=== PATIENT | female | born 1960 | race Caucasian/White ===

== ENCOUNTER 2018-09-01 13:14 | Emergency (ER) | payer OTHER ==
[2018-09-01] MEDS ORDERED: ASPIRIN 81 MG CHEWABLE TAB PO ONE (13:47)
--- NOTE | 2018-09-01 13:53 | EDPHY ---
H & P Stated Complaint: Chest tightness Time Seen by Provider: 09/01/18 13:44 HPI/ROS: CHIEF COMPLAINT: Chest tightness for 1 week HISTORY OF PRESENT ILLNESS: Patient is a 58-year-old female who has been complaining about chest tightness for about 1 week. She states that her symptoms worsened slightly about 24 hr ago. Today [facility]. They obtained an EKG and recommended she come to the ER. She initially declined but later decided to come. She denies significant past medical history other than hypothyroidism. She does travel frequently and recently however she thinks her symptoms began before she was traveling. No fever. No cough. No history of cardiac disease. No family history of cardiac disease. Her symptoms are slightly worsened by deep inspirations. Severity: Moderate Modifying factors: Worsening REVIEW OF SYSTEMS: Constitutional: denies: chills, fever, recent illness, recent injury EENTM: denies: blurred vision, double vision, nose congestion Respiratory: See HPI denies: cough, shortness of breath Cardiac: See HPI denies: irregular heart rate, lightheadedness, palpitations Gastrointestinal/Abdominal: denies: abdominal pain, diarrhea, nausea, vomiting, blood streaked stools Genitourinary: denies: dysuria, frequency, hematuria, pain Musculoskeletal: denies: joint pain, muscle pain Skin: denies: lesions, rash, jaundice, bruising Neurological: denies: headache, numbness, paresthesia, tingling, dizziness, weakness Hematologic/Lymphatic: denies: blood clots, easy bleeding, easy bruising Immunologic/allergic: denies: HIV/AIDS, transplant 10 systems reviewed and negative except as noted EXAM: GENERAL: Well-appearing, well-nourished and in no acute distress. HEAD: Atraumatic, normocephalic. EYES: Pupils equal round and reactive to light, extraocular movements intact, sclera anicteric, conjunctiva are normal. ENT: TMs normal, nares patent, oropharynx clear without exudates. Moist mucous membranes. NECK: Normal range of motion, supple without lymphadenopathy or JVD. LUNGS: Breath sounds clear to auscultation bilaterally and equal. No wheezes rales or rhonchi. HEART: Regular rate and rhythm without murmurs, rubs or gallops. ABDOMEN: Soft, nontender, normoactive bowel sounds. No guarding, no rebound. No masses appreciated. BACK: No CVA tenderness, no spinal tenderness, step-offs or deformities EXTREMITIES: Normal range of motion, no pitting or edema. No clubbing or cyanosis. NEUROLOGICAL: Cranial nerves II through XII grossly intact. Normal speech, normal gait. 5/5 strength, normal movement in all extremities, normal sensation , normal reflexes PSYCH: Normal mood, normal affect. SKIN: Warm, dry, normal turgor, no visible rashes or lesions. Source: Patient Exam Limitations: No limitations - Personal History Current Tetanus/Diphtheria Vaccine: Yes - Medical/Surgical History Hx Asthma: No Hx Chronic Respiratory Disease: No Hx Diabetes: No Hx Cardiac Disease: No Hx Renal Disease: No Hx Cirrhosis: No Hx Alcoholism: No Other PMH: hypothyroidism - Social History Smoking Status: Never smoked Alcohol Use: Sober Drug Use: None Constitutional: Initial Vital Signs Temperature (C) 36.7 C 09/01/18 13:32 Heart Rate 75 09/01/18 13:32 Respiratory Rate 18 09/01/18 13:32 Blood Pressure 135/82 H 09/01/18 13:32 O2 Sat (%) 94 09/01/18 13:32 O2 Delivery Mode Room Air Allergies/Adverse Reactions: codeine Allergy (Verified 09/01/18 13:35) Home Medications: Medication Instructions Recorded Levothyroxine 09/01/18 Medical Decision Making - Diagnostics EKG Interpretation: An EKG obtained and was read and documented in trace view. Please see trace view for full reading and report. Sinus rhythm, no acute ischemic changes sinus rhythm, no acute ischemic changes Imaging: Discussed imaging studies w/ injection wax molder Radiologist ED Course/Re-evaluation: 3:00 p.m. We discussed the test results which are very reassuring. We discussed possible causes for her chest tightness including a recent viral infection she had 3 weeks ago. She also wonders if she is starting to come down with a cold because her states that her voice has changed slightly. She does not feel it is. We engaged in shared decision making. I offered admission or repeat testing. She declines these and was eager to go home. I agree that this is safe because of the duration of her symptoms. She will follow up with her primary and I will also refer her to Cardiology. Differential Diagnosis: Partial list of the Differential diagnosis considered include but were not limited to; acute coronary disease, pleurisy, pericarditis, PE and although unlikely based on the history and physical exam, I also considered pneumonia, pneumothorax, dissection. I discussed these differential diagnoses and the plan with the patient as well as the usual and expected course. The patient understands that the diagnosis is provisional and that in medicine we are not always correct and that further workup is often warranted. Usual and customary warnings were given. All of the patient's questions were answered. The patient was instructed to return to the emergency department should the symptoms at all worsen or return, otherwise to followup with the physician as we discussed. - Data Points Laboratory Results: Laboratory Results 09/01/18 13:55 09/01/18 13:55 Medications Given: Discontinued Medications Aspirin (Aspirin) 324 mg PO EDNOW ONE Stop: 09/01/18 13:48 Last Admin: 09/01/18 13:49 Dose: 324 mg Point of Care Test Results: Chemistry 09/01/18 13:52 POC Troponin I 0.00 ng/mL ng/mL (0.00-0.08) Departure - Departure Disposition: Home, Routine, Self-Care Clinical Impression: Chest pain Qualifiers: Chest pain type: unspecified Qualified Code(s): R07.9 - Chest pain, unspecified Condition: Fair Instructions: Chest Pain (ED) Referrals: María Scales MD [Primary Care Provider] - 2-3 days, call for appt.
--- NOTE | 2018-09-01 13:55 | CPEKG ---
Test Reason : OPEN Blood Pressure : / mmHG Vent. Rate : 069 BPM Atrial Rate : 068 BPM P-R Int : 125 ms QRS Dur : 089 ms QT Int : 406 ms P-R-T Axes : 055 003 034 degrees QTc Int : 435 ms Sinus rhythm Abnormal R-wave progression, early transition Confirmed by Ramesh Lozada ([id number]) on 09/01/2018 1:54:58 PM Referred By: Confirmed By:Ramesh Lozada
[2018-09-01 13:59] LABS: PLATELET COUNT 255 10^3/uL (150-400)
[2018-09-01 14:07] LABS: INR 0.98 (0.83-1.16); PROTIME(PATIENT) 13.2 SEC (12.0-15.0)
[2018-09-01 15:19] VITALS: BP 97/70
== END 2018-09-01 15:17 | disposition home or self-care (01) ==
DX: R07.9 Chest pain, unspecified (principal); E03.9 Hypothyroidism, unspecified
CPT/HCPCS: 84484-PO